=== PATIENT | female | born 1950 | race Caucasian/White ===

== ENCOUNTER 2021-07-24 08:24 | Inpatient (IN) | payer OTHER ==
[2021-07-24 09:07] LABS: Hemoglobin 13.1 g/dL (12.0-15.5); INR-International Normal Ratio 1.6; MDiff Complete? YES; Mean Corpuscular HGB CONC 33.2 g/dL (32.0-36.0); Mean Corpuscular Hemoglobin 34.3 pg (27.0-33.0); Mean Corpuscular Volume 103.1 fl (81.6-98.3); Mean Platelet Volume 12.3 fl (7.4-10.4); PTT 38.5 sec (22.0-33.0); Platelet Count 106 10x3/uL (150-450); Prothrombin Time 17.2 sec (9.5-12.1); RBC Distribution Width 12.8 % (11.5-14.5); Red Blood Cell (RBC) Count 3.82 10x6/uL (3.90-5.03); White Blood Cell (WBC) Count 11.6 10x3/uL (3.5-10.5)
[2021-07-24 09:16] LABS: Acetaminophen Less than 10.0 mcg/mL (10.0-30.0); Alcohol Less than 10 mg/dL (Less than 10); Salicylate Less than 8.0 mg/dL (15.0-30.0)
[2021-07-24 09:18] LABS: ALT (SGPT) 202 U/L (8-55); AST (SGOT) 652 U/L (5-34); Albumin 3.4 g/dL (3.4-4.8); Alkaline Phosphatase 43 U/L (40-110); BUN (Urea Nitrogen) 61 mg/dL (9.8-20.1); Bilirubin, Total 0.8 mg/dL (0.2-1.2); Calc. Creatinine Clearance 0 mL/min (70-130); Calcium 7.6 mg/dL (7.8-10.44); Chloride 102 mmol/L (98-107); Globulin 2.2 g/dL (2.4-3.5); Glucose 162 mg/dL (80-115); Lipase 21 U/L (8-78); Protein, Total 5.6 g/dL (5.8-8.1); Sodium 134 mmol/L (136-145)
[2021-07-24 09:25] LABS: Band 40 % (5-11); Lymphocytes 2 % (21-51); Monocytes 7 % (0-10); Neutrophil 49 % (42-75); Reactive Lymphocytes 1 % (0-10)
[2021-07-24 09:28] LABS: Large Platelets SLIGHT; Macrocytosis SLIGHT = 6-15 cells (100X) (0-5/hpf); Platelet Morphology Comment Appears Decreased
[2021-07-24 09:29] LABS: Dohle Bodies SLIGHT
[2021-07-24 09:30] LABS: Carbon Dioxide Less than 8 mmol/L (23-31); Potassium 6.7 mmol/L (3.5-5.1)
[2021-07-24] MEDS ORDERED: Albuterol Sulfate 2.5 mg/3 ml Neb ONE ×3 (09:54→15:23)
[2021-07-24 10:29] LABS: Actual Bicarbonate (HCO3a) 7.7 mEq/L (22-28); Base Excess (BEa) -20.2 mEq/L (-2.0 to +3.0); Calcium, Ionized (arterial) 0.94 mmol/L (1.12-1.30); Carboxyhemoglobin (COHb) 0.5 gm% (0.0-3.0); Hemoglobin (Hb) 12.4 g/dL (12.0-16.0); O2 Tension (PaO2), arterial 137.1 mmHg (> 80.0); Potassium - ABG Lab 6.7 mmol/L (3.70-5.30); Puncture Site RBA; pH, Arterial 7.11 (7.35-7.45)
[2021-07-24 10:32] LABS: CK (CPK) Greater than 40000 U/L (29-168)
[2021-07-24 10:34] LABS: CKMB 633.6 ng/mL (0-6.6)
[2021-07-24] MEDS ORDERED: Calcium Chloride 1 GM/10 ML Abboject SYRINGE ONE (10:44)
[2021-07-24] MEDS ORDERED: Dextrose 50% Abboject 50 ML SYRINGE ONE (10:44)
[2021-07-24] MEDS ORDERED: Cefepime 2 GM VIAL ONE (10:45)
[2021-07-24] MEDS ORDERED: Insulin Regular 300 UNITS/3 ML VIAL ONE (10:45)
[2021-07-24] MEDS ORDERED: Sodium Bicarb 50 MEQ/50 ML VIAL ONE ×4 (10:46→10:47)
[2021-07-24 10:52] LABS: Bilirubin 1+ (Negative); Blood, Urine 250 (Negative); Clarity Cloudy (Clear); Glucose, Urine (Dipstick) Normal (Negative); Ketone, Urine Negative (Negative); Leukocyte 500 (Negative); Nitrite Negative (Negative); Protein, Urine (Dipstick) 100 mg/dl (Neg-Trace); Specific Gravity, Urine 1.025 (1.002-1.036)
[2021-07-24 11:03] LABS: Amphetamine Not Detected (NotDetected); Barbiturates Screen Not Detected (NotDetected); Benzodiazepine Screen Not Detected (NotDetected); Cocaine Metabolite Screen Not Detected (NotDetected); Methadone Not Detected (NotDetected); Methamphetamine Not Detected (NotDetected); Opiate Screen Detected (NotDetected); Oxycodone Screen Not Detected (NotDetected); Phencyclidine (PCP) Not Detected (NotDetected); THC/Cannabinoid Screen Not Detected (NotDetected); Tricyclic Screen Not Detected (NotDetected)
[2021-07-24 11:17] LABS: WBC/HPF 21-50 HPF (0-3)
[2021-07-24 11:18] LABS: Bacteria/HPF 2+ HPF (None Seen); Squamous Epithelial 0-3 HPF (0-3); Transitional Epithelial 0-3 HPF (None Seen)
[2021-07-24] MEDS ORDERED: Ondansetron PF 4 MG/2 ML Vial IVP PRN (12:07)
[2021-07-24] MEDS ORDERED: Dextrose 5% in Water 1,000 ML IV PRN (12:07)
[2021-07-24] MEDS ORDERED: HumaLOG 300 UNITS/3 ML VIAL SC PRN ×4 (12:07→12:56)
[2021-07-24] MEDS ORDERED: Ondansetron ODT 4 MG TAB PO PRN (12:07)
[2021-07-24] MEDS ORDERED: Acetaminophen 650 MG Suppository PR PRN (12:07)
[2021-07-24] MEDS ORDERED: Acetaminophen 325 MG TAB PO PRN (12:07)
[2021-07-24 12:24] LABS: Anion Gap 29 mmol/L (10-20); BUN (Urea Nitrogen) 60 mg/dL (9.8-20.1); Calc. Creatinine Clearance 0 mL/min (70-130); Calcium 7.9 mg/dL (7.8-10.44); Chloride 102 mmol/L (98-107); Glucose 178 mg/dL (80-115); Sodium 132 mmol/L (136-145)
[2021-07-24] MEDS ORDERED: Lactated Ringer's 1,000 ML IV SCH (12:30)
[2021-07-24 12:34] LABS: Carbon Dioxide 8 mmol/L (23-31); Potassium 7.1 mmol/L (3.5-5.1)
[2021-07-24 12:36] LABS: Lactic Acid 12.3 mmol/L (0.5-2.2)
[2021-07-24] MEDS ORDERED: Aspirin Chewable 81 MG TAB ONE (12:43)
[2021-07-24] MEDS ORDERED: Sodium Chloride 0.9% 1,000 ML IV SCH (13:00)
[2021-07-24 13:02] LABS: Glucose 164 mg/dL (80-115); Troponin I 0.065 ng/mL (< 0.028)
[2021-07-24 13:10] LABS: Magnesium 2.1 mg/dL (1.6-2.6)
[2021-07-24 13:24] LABS: Phosphorus 11.9 mg/dL (2.3-4.7)
[2021-07-24 13:49] VITALS: BMI 38.9
[2021-07-24] MEDS ORDERED: Calcium Gluconate 4.6 MEQ in Sodium Chloride 0.9% 100 ML IVPB ONE (13:55)
[2021-07-24] MEDS ORDERED: Dextrose 50% Abboject 50 ML SYRINGE SLOW IVP PRN (13:57)
[2021-07-24 13:59] LABS: SARS-CoV-2 NAA Rapid Test Not Detected (NotDetected)
[2021-07-24] MEDS ORDERED: Insulin Regular 300 UNITS/3 ML VIAL IVP SCH (14:00)
[2021-07-24] MEDS ORDERED: Sodium Bicarb 50 MEQ/50 ML VIAL IVP SCH (14:15)
[2021-07-24] MEDS ORDERED: Albuterol Sulfate 2.5 mg/3 ml Neb NEB SCH (15:15)
[2021-07-24 15:37] LABS: Strep pneumo Urine Ag POSITIVE (NEGATIVE)
[2021-07-24 15:42] LABS: Actual Bicarbonate (HCO3a) 11.5 mEq/L (22-28); Base Excess (BEa) -15.9 mEq/L (-2.0 to +3.0); CO2 Tension 32.5 mmHg (35.0-45.0); Calcium, Ionized (arterial) 0.94 mmol/L (1.12-1.30); Hemoglobin (Hb) 13.3 g/dL (12.0-16.0); O2 Tension (PaO2), arterial 107.5 mmHg (> 80.0); Potassium - ABG Lab 7.3 mmol/L (3.70-5.30); Puncture Site LRA; pH, Arterial 7.17 (7.35-7.45)
[2021-07-24 15:45] LABS: ALV-art Gradient 564.875 mmHg (0-20)
[2021-07-24] MEDS: Heparin 5,000 UNITS/ML VIAL SC SCH ×2 (15:52→22:45)
[2021-07-24] MEDS ORDERED: Sodium Bicarbonate 75 MEQ, Admixture Fee 1 EACH in Dextrose 5% in Water 500 ML IV SCH (16:00)
[2021-07-24] MEDS ORDERED: Norepinephrine 8 MG/0.9% NS 250 ML ONE (16:12)
[2021-07-24] MEDS ORDERED: Albumin 25% 25 GM/100 ML BOT IVPB PRN (16:13)
[2021-07-24] MEDS ORDERED: Fentanyl 100 MCG/2 ML VIAL ONE (16:27)
[2021-07-24] MEDS ORDERED: PROPOFOL 200 MG/20 ML VIAL ONE (16:30)
[2021-07-24] MEDS ORDERED: Rocuronium Bromide 10 MG/ML (10ML VIAL) ONE (16:30)
[2021-07-24] MEDS ORDERED: Propofol 1,000 MG/100 ML VIAL IV ONE (16:40)
[2021-07-24] MEDS ORDERED: Hydrocortisone Sod Succ/PF 100 mg/2 ml Vial ONE (16:44)
[2021-07-24 16:58] LABS: ALT (SGPT) 539 U/L (8-55); AST (SGOT) 1333 U/L (5-34); Albumin 2.8 g/dL (3.4-4.8); Alkaline Phosphatase 51 U/L (40-110); Anion Gap 25 mmol/L (10-20); BUN (Urea Nitrogen) 64 mg/dL (9.8-20.1); Bilirubin, Total 0.6 mg/dL (0.2-1.2); Calc. Creatinine Clearance 21 mL/min (70-130); Calcium 7.2 mg/dL (7.8-10.44); Carbon Dioxide 12 mmol/L (23-31); Chloride 104 mmol/L (98-107); Globulin 2.3 g/dL (2.4-3.5); Glucose 226 mg/dL (80-115); Protein, Total 5.1 g/dL (5.8-8.1); Sodium 134 mmol/L (136-145)
[2021-07-24] MEDS ORDERED: Rocuronium Bromide 10 MG/ML (10ML VIAL) IVP SCH (17:00)
[2021-07-24] MEDS: Sodium Bicarbonate 75 MEQ, Admixture Fee 1 EACH in Dextrose 5% in Water 500 ML IV SCH ×2 (17:00→18:15)
[2021-07-24] MEDS ORDERED: Fentanyl 100 MCG/2 ML VIAL SLOW IVP SCH (17:00)
[2021-07-24] MEDS ORDERED: Hydrocortisone Sod Succ/PF 100 mg/2 ml Vial IVP SCH (17:00)
[2021-07-24] MEDS ORDERED: Lactated Ringer's 500 ML IV SCH (17:00)
[2021-07-24 17:03] LABS: Potassium 7.1 mmol/L (3.5-5.1)
[2021-07-24 17:11] LABS: Troponin I 0.074 ng/mL (< 0.028)
[2021-07-24] MEDS ORDERED: Ventilator Sedation Protocol 1 EACH FS SCH (17:15)
[2021-07-24] MEDS: Sodium Chloride 0.9% 1,000 ML IV SCH (17:21)
[2021-07-24 17:26] LABS: Hep B Surf Ag Non-Reactive S/CO (NonReactive)
[2021-07-24] MEDS: Lactated Ringer's 1,000 ML IV SCH (17:29)
[2021-07-24] MEDS ORDERED: DISCONTINUE PREVIOUS NARCOTIC PAIN MEDICATIONS AND BENZODIAZEPINES FS SCH (17:30)
[2021-07-24] MEDS ORDERED: Lorazepam 2 MG/ML VIAL SLOW IVP PRN (17:30)
[2021-07-24] MEDS ORDERED: Fentanyl BOLUS 250 ML IVPB PRN (17:30)
[2021-07-24] MEDS ORDERED: Propofol BOLUS 1,000 MG/100 ML VIAL IV PRN (17:30)
[2021-07-24] MEDS ORDERED: Morphine 2 MG/ML VIAL SLOW IVP PRN (17:30)
[2021-07-24 17:56] LABS: HBSAg Index 0.19 S/CO (0-0.99)
[2021-07-24] MEDS: Propofol 1,000 MG/100 ML VIAL IV PRN (17:58)
[2021-07-24] MEDS ORDERED: Famotidine/PF 20 mg/2ml Vial SLOW IVP SCH (21:00)
[2021-07-24] MEDS ORDERED: Cefepime 1 GM in Sodium Chloride 0.9% 100 ML IVPB SCH (22:30)
[2021-07-24] MEDS ORDERED: Vancomycin 1 GM in Premix Bag 1 BAG IVPB PRN (22:50)
[2021-07-24 22:55] LABS: Glucose 135 mg/dL (80-115)
[2021-07-24 23:29] LABS: HBSAB Concentration Less than 8.00 mIU/mL; Hep B Core Total Ab Non-Reactive (NonReactive); Hep B Core Total Index 0.08 S/CO (0-0.79); Hep B Surf AB Non-Reactive (NonReactive); Hep C IgG Ab Non-Reactive (NonReactive); Hep C Index 0.05 S/CO (0-0.79)
[2021-07-24] MEDS ORDERED: Sodium Chloride 0.9% 500 ML IV SCH (23:30)
[2021-07-24] MEDS ORDERED: Albumin 25% 25 GM/100 ML BOT IVPB SCH (23:30)
[2021-07-24] MEDS: Hydrocortisone Sod Succ/PF 100 mg/2 ml Vial IVP SCH (23:50)
[2021-07-24] MEDS ORDERED: Vancomycin HCl 1 GM in Sodium Chloride 0.9% 250 ML 250 ML IVPB SCH (23:59)
[2021-07-25 00:44] LABS: Actual Bicarbonate (HCO3v) 20 mEq/L (22-28); Base Excess -3.2 mEq/L (-2.0 to +3.0); Calcium, Ionized (venous) 0.72 mmol/L (1.16-1.32); Chloride (VBG) 98 mmol/L (98-106); Critical Notified Whom: ZOVAN; Hemoglobin (Hb) 12.4 g/dL (11.7-16.1); Potassium (VBG) 5.22 mmol/L (3.70-5.30); Puncture Site Other Site; Sodium 132.3 mmol/L (133-146); pH (venous) 7.42 (7.32-7.43)
[2021-07-25 00:53] LABS: Anion Gap 24 mmol/L (10-20); BUN (Urea Nitrogen) 39 mg/dL (9.8-20.1); Calc. Creatinine Clearance 32 mL/min (70-130); Calcium 6.7 mg/dL (7.8-10.44); Carbon Dioxide 18 mmol/L (23-31); Chloride 99 mmol/L (98-107); Glucose 114 mg/dL (80-115); Potassium 5.4 mmol/L (3.5-5.1); Sodium 136 mmol/L (136-145)
[2021-07-25] MEDS ORDERED: Calcium Gluc 4.6 MEQ/10 ML (100 MG/ML) SLOW IVP SCH ×3 (00:59→23:36)
[2021-07-25 01:09] LABS: Lactic Acid 8.1 mmol/L (0.5-2.2)
[2021-07-25] MEDS: Pantoprazole 40 MG VIAL IVP SCH ×3 (01:22→23:49)
[2021-07-25 01:38] LABS: Hemoglobin 12.2 g/dL (12.0-15.5); Manual Diff?? YES; Mean Corpuscular HGB CONC 35.1 g/dL (32.0-36.0); Mean Corpuscular Hemoglobin 34.2 pg (27.0-33.0); Mean Corpuscular Volume 97.5 fl (81.6-98.3); Mean Platelet Volume 13.2 fl (7.4-10.4); Platelet Count 41 10x3/uL (150-450); RBC Distribution Width 12.8 % (11.5-14.5); Red Blood Cell (RBC) Count 3.57 10x6/uL (3.90-5.03); White Blood Cell (WBC) Count 3.9 10x3/uL (3.5-10.5)
[2021-07-25 01:39] LABS: MDiff Complete? YES
[2021-07-25] MEDS: Lactated Ringer's 1,000 ML IV SCH ×4 (02:14→18:46)
[2021-07-25 02:37] LABS: Band 38 % (5-11); Eosinophils 1 % (0-10); Lymphocytes 1 % (21-51); Metamyelocyte 8 % (0-0); Monocytes 7 % (0-10); Myelocyte 1 % (0-0); Neutrophil 40 % (42-75)
[2021-07-25 02:39] LABS: Dohle Bodies SLIGHT; Platelet Morphology Comment Appears Decreased; Toxic Granulation SLIGHT; Vacuoles SLIGHT
[2021-07-25] MEDS: Propofol 1,000 MG/100 ML VIAL IV PRN ×3 (04:20→21:42)
[2021-07-25] MEDS: fentaNYL Citrate-0.9 % NaCl/PF 100 ML IVPB SCH ×2 (04:20→19:29)
[2021-07-25] MEDS: Sodium Chloride 0.9% 1,000 ML IV SCH (04:29)
[2021-07-25 04:48] LABS: Hemoglobin 12.3 g/dL (12.0-15.5); MDiff Complete? YES; Manual Diff?? YES; Mean Corpuscular HGB CONC 34.6 g/dL (32.0-36.0); Mean Corpuscular Hemoglobin 34.1 pg (27.0-33.0); Mean Corpuscular Volume 98.3 fl (81.6-98.3); Mean Platelet Volume 13.2 fl (7.4-10.4); Platelet Count 40 10x3/uL (150-450); RBC Distribution Width 12.9 % (11.5-14.5); Red Blood Cell (RBC) Count 3.61 10x6/uL (3.90-5.03); White Blood Cell (WBC) Count 5.1 10x3/uL (3.5-10.5)
[2021-07-25] MEDS: Phenylephrine 40 MG/NS 250 ML 40 MG in Premix Bag 1 BAG IVPB SCH ×3 (04:57→19:29)
[2021-07-25] MEDS ORDERED: Phenylephrine 40 MG/NS 250 ML 10 MG in Premix Bag 1 BAG IVPB SCH (05:00)
[2021-07-25 05:15] LABS: Iron 24 ug/dL (50-170); Iron Binding Capacity, Total 116 mcg/dL (265-497)
[2021-07-25 05:17] LABS: Band 60 % (5-11); Dohle Bodies SLIGHT; Metamyelocyte 9 % (0-0); Monocytes 3 % (0-10); Neutrophil 23 % (42-75); Platelet Morphology Comment Appears Decreased; Toxic Granulation SLIGHT; Vacuoles SLIGHT
[2021-07-25 05:21] LABS: Iron 23 ug/dL (50-170)
[2021-07-25 05:28] LABS: ALT (SGPT) 800 U/L (8-55); AST (SGOT) 2049 U/L (5-34); Albumin 3.3 g/dL (3.4-4.8); Alkaline Phosphatase 66 U/L (40-110); Anion Gap 27 mmol/L (10-20); BUN (Urea Nitrogen) 43 mg/dL (9.8-20.1); CK (CPK) Greater than 40000 U/L (29-168); Calc. Creatinine Clearance 29 mL/min (70-130); Calcium 6.7 mg/dL (7.8-10.44); Carbon Dioxide 17 mmol/L (23-31); Chloride 100 mmol/L (98-107); Globulin 1.9 g/dL (2.4-3.5); Glucose 89 mg/dL (80-115); Iron Binding Capacity, Total 120 mcg/dL (265-497); Magnesium 1.7 mg/dL (1.6-2.6); Potassium 5.7 mmol/L (3.5-5.1); Protein, Total 5.2 g/dL (5.8-8.1); Sodium 138 mmol/L (136-145)
[2021-07-25] MEDS: Hydrocortisone Sod Succ/PF 100 mg/2 ml Vial IVP SCH ×4 (05:59→23:47)
[2021-07-25] MEDS ORDERED: Norepinephrine 16 MG, Admixture Fee 1 EACH in Dextrose 5% in Water 250 ML IVPB SCH (06:00)
[2021-07-25 07:03] LABS: Actual Bicarbonate (HCO3a) 26.3 mEq/L (22-28); Base Excess (BEa) -1.3 mEq/L (-2.0 to +3.0); CO2 Tension 57.8 mmHg (35.0-45.0); Calcium, Ionized (arterial) 0.99 mmol/L (1.12-1.30); Carboxyhemoglobin (COHb) 1.4 gm% (0.0-3.0); Hemoglobin (Hb) 12.1 g/dL (12.0-16.0); O2 Tension (PaO2), arterial 35.8 mmHg (> 80.0); Puncture Site Left Heel; pH, Arterial 7.28 (7.35-7.45)
[2021-07-25 07:37] LABS: Actual Bicarbonate (HCO3a) 16.5 mEq/L (22-28); Base Excess (BEa) -8.2 mEq/L (-2.0 to +3.0); CO2 Tension 31.5 mmHg (35.0-45.0); Calcium, Ionized (arterial) 0.78 mmol/L (1.12-1.30); Carboxyhemoglobin (COHb) 0.7 gm% (0.0-3.0); Hemoglobin (Hb) 12.6 g/dL (12.0-16.0); O2 Tension (PaO2), arterial 143.5 mmHg (> 80.0); Potassium - ABG Lab 6.1 mmol/L (3.70-5.30); Puncture Site RRA; pH, Arterial 7.34 (7.35-7.45)
[2021-07-25 07:42] LABS: ALV-art Gradient 209.275 mmHg (0-20)
[2021-07-25] MEDS ORDERED: Polyethylene Glycol 3350 17 GM Packet PER TUBE PRN (08:27)
[2021-07-25] MEDS ORDERED: Senokot S 8.6-50 MG TAB PO PRN (08:27)
[2021-07-25] MEDS ORDERED: Magnesium 2 GM/50 ML(in water) 2 GM in Premix Bag 1 BAG IVPB SCH (08:45)
[2021-07-25] MEDS ORDERED: Iron Sucrose Complex 100 MG in Sodium Chloride 0.9% 100 ML IVPB SCH (09:00)
[2021-07-25] MEDS ORDERED: Clopidogrel Bisulfate 75 MG TAB PO SCH (09:00)
[2021-07-25] MEDS ORDERED: Gabapentin 300 MG CAP PO SCH (09:00)
[2021-07-25] MEDS ORDERED: Aspirin Chewable 81 MG TAB PO SCH (09:00)
[2021-07-25] MEDS ORDERED: Folic Acid 1 MG TAB PO SCH (09:00)
[2021-07-25] MEDS ORDERED: Famotidine 20 MG TAB PO SCH (09:00)
[2021-07-25] MEDS ORDERED: Acetaminophen 650 MG Suppository PR PRN (09:05)
[2021-07-25] MEDS ORDERED: Acetaminophen 325 MG TAB PO PRN (09:06)
[2021-07-25] MEDS ORDERED: Levothyroxine Sodium 100 MCG TAB PO SCH (09:15)
[2021-07-25] MEDS ORDERED: Iron, Sodium Ferric Gluconate 125 MG in Sodium Chloride 0.9% 100 ML IVPB SCH (09:15)
[2021-07-25 09:32] LABS: Hemoglobin 12.9 g/dL (12.0-15.5); Mean Corpuscular HGB CONC 33.6 g/dL (32.0-36.0); Mean Corpuscular Volume 101.3 fl (81.6-98.3); Mean Platelet Volume 13.2 fl (7.4-10.4); Platelet Count 47 10x3/uL (150-450); RBC Distribution Width 13.1 % (11.5-14.5); Red Blood Cell (RBC) Count 3.79 10x6/uL (3.90-5.03); White Blood Cell (WBC) Count 10.4 10x3/uL (3.5-10.5)
[2021-07-25 10:02] LABS: Lactic Acid 13.1 mmol/L (0.5-2.2)
[2021-07-25 10:03] LABS: ALT (SGPT) 972 U/L (8-55); AST (SGOT) 2273 U/L (5-34); Albumin 3.1 g/dL (3.4-4.8); Alkaline Phosphatase 68 U/L (40-110); Anion Gap 30 mmol/L (10-20); BUN (Urea Nitrogen) 46 mg/dL (9.8-20.1); Bilirubin, Total 2.2 mg/dL (0.2-1.2); Calc. Creatinine Clearance 26 mL/min (70-130); Calcium 5.9 mg/dL (7.8-10.44); Carbon Dioxide 12 mmol/L (23-31); Chloride 100 mmol/L (98-107); Globulin 1.6 g/dL (2.4-3.5); Glucose 39 mg/dL (80-115); Potassium 6.5 mmol/L (3.5-5.1); Protein, Total 4.7 g/dL (5.8-8.1); Sodium 135 mmol/L (136-145)
[2021-07-25 10:04] LABS: Glucose 40 mg/dL (80-115)
[2021-07-25] MEDS: Dextrose 50% Abboject 50 ML SYRINGE SLOW IVP PRN ×3 (10:04→16:41)
[2021-07-25 10:39] LABS: CK (CPK) Greater than 40000 U/L (29-168)
[2021-07-25 10:56] LABS: MDiff Complete? YES
[2021-07-25 11:01] LABS: Glucose 83 mg/dL (80-115)
[2021-07-25 11:01] LABS: Eosinophils 1 % (0-10); Lymphocytes 2 % (21-51)
[2021-07-25 11:02] LABS: Band 28 % (5-11); Monocytes 6 % (0-10); Neutrophil 63 % (42-75)
[2021-07-25 11:03] LABS: Platelet Morphology Comment Appears Decreased
[2021-07-25 11:04] LABS: Dohle Bodies SLIGHT
[2021-07-25 13:32] LABS: Vancomycin, Random 16.2 ug/mL (See Comment)
[2021-07-25] MEDS ORDERED: Dextrose 10% in Water 1,000 ML IV SCH (14:00)
[2021-07-25] MEDS ORDERED: Digoxin 0.5 MG/2 ML AMP SLOW IVP SCH (15:00)
[2021-07-25 18:01] LABS: Glucose 83 mg/dL (80-115)
[2021-07-25 20:13] LABS: Glucose 77 mg/dL (80-115)
[2021-07-25] MEDS ORDERED: Cefepime 0.5 GM, Admixture Fee 1 EACH in Sodium Chloride 0.9% 50 ML IVPB SCH (23:00)
[2021-07-26] MEDS: Dextrose 50% Abboject 50 ML SYRINGE SLOW IVP PRN (00:02)
[2021-07-26 00:17] VITALS: BP 103/48; TEMP 97.5
[2021-07-26 01:33] LABS: Vancomycin, Random 11.3 ug/mL (See Comment)
[2021-07-26 01:47] LABS: BUN (Urea Nitrogen) 32 mg/dL (9.8-20.1); Calc. Creatinine Clearance 29 mL/min (70-130); Carbon Dioxide Less than 8 mmol/L (23-31); Chloride 96 mmol/L (98-107); Glucose 118 mg/dL (80-115); Magnesium 2.6 mg/dL (1.6-2.6); Potassium 7.2 mmol/L (3.5-5.1); Sodium 133 mmol/L (136-145)
[2021-07-26] MEDS ORDERED: Dextrose 50% Abboject 50 ML SYRINGE SLOW IVP PRN (01:56)
[2021-07-26] MEDS ORDERED: Calcium Gluc 4.6 MEQ/10 ML (100 MG/ML) SLOW IVP SCH (02:00)
[2021-07-26] MEDS ORDERED: Insulin Regular 300 UNITS/3 ML VIAL IVP SCH (02:00)
[2021-07-26] MEDS ORDERED: Sodium Bicarb 50 MEQ/50 ML VIAL IVP SCH (02:00)
[2021-07-26] MEDS ORDERED: Albuterol Sulfate 2.5 mg/3 ml Neb NEB SCH (02:00)
[2021-07-26] MEDS ORDERED: Sodium Bicarbonate 75 MEQ in Dextrose 5% in Water 500 ML IV SCH (02:30)
[2021-07-26] MEDS ORDERED: Vasopressin 20 UNIT, Admixture Fee 1 EACH in Sodium Chloride 0.9% 50 ML IV SCH (02:30)
[2021-07-26] MEDS ORDERED: Levothyroxine Sodium 100 MCG TAB PO SCH (06:00)
== END 2021-07-26 09:58 | disposition expired | DRG 871 ==
LOC: CSHERS 08:24 → CSHIMCU 13:32
PROVIDERS: ADMIT Family Medicine; ATTEND Family Medicine
PROC: 5A1945Z Respiratory Ventilation, 24-96 Consecutive Hours (ICD-10-PCS; principal; 2021-07-24)
PROC: 0BH18EZ Insertion of Endotracheal Airway into Trachea, Via Natural or Artificial Opening Endoscopic (ICD-10-PCS; 2021-07-24)
PROC: 06HY33Z Insertion of Infusion Device into Lower Vein, Percutaneous Approach (ICD-10-PCS; 2021-07-24)
PROC: 3E03329 Introduction of Other Anti-infective into Peripheral Vein, Percutaneous Approach (ICD-10-PCS; 2021-07-24)
PROC: 3E033XZ Introduction of Vasopressor into Peripheral Vein, Percutaneous Approach (ICD-10-PCS; 2021-07-24)
PROC: 5A1D70Z Performance of Urinary Filtration, Intermittent, Less than 6 Hours Per Day (ICD-10-PCS; 2021-07-24)
PROC: 5A2204Z Restoration of Cardiac Rhythm, Single (ICD-10-PCS; 2021-07-26)
PROC: 5A12012 Performance of Cardiac Output, Single, Manual (ICD-10-PCS; 2021-07-26)
DX: A41.89 Other specified sepsis (principal); J96.01 Acute respiratory failure with hypoxia; J96.02 Acute respiratory failure with hypercapnia; R65.21 Severe sepsis with septic shock; J18.9 Pneumonia, unspecified organism; K72.00 Acute and subacute hepatic failure without coma; N18.6 End stage renal disease; I21.A1 Myocardial infarction type 2; G92.8 Other toxic encephalopathy; E87.2 Acidosis; N17.9 Acute kidney failure, unspecified; I47.2 Ventricular tachycardia; I12.0 Hypertensive chronic kidney disease with stage 5 chronic kidney disease or end stage renal disease; T79.6XXA Traumatic ischemia of muscle, initial encounter; R57.1 Hypovolemic shock; D75.89 Other specified diseases of blood and blood-forming organs; D69.6 Thrombocytopenia, unspecified; I25.10 Atherosclerotic heart disease of native coronary artery without angina pectoris; N31.9 Neuromuscular dysfunction of bladder, unspecified; F32.A Depression, unspecified; F11.90 Opioid use, unspecified, uncomplicated; M25.512 Pain in left shoulder; E78.5 Hyperlipidemia, unspecified; E11.65 Type 2 diabetes mellitus with hyperglycemia; G47.33 Obstructive sleep apnea (adult) (pediatric); E66.9 Obesity, unspecified; G89.29 Other chronic pain; E88.09 Other disorders of plasma-protein metabolism, not elsewhere classified; D63.1 Anemia in chronic kidney disease; I48.91 Unspecified atrial fibrillation; I49.01 Ventricular fibrillation; Z20.822 Contact with and (suspected) exposure to COVID-19; E11.22 Type 2 diabetes mellitus with diabetic chronic kidney disease; E89.0 Postprocedural hypothyroidism; T40.2X5A Adverse effect of other opioids, initial encounter; E87.5 Hyperkalemia; Z87.448 Personal history of other diseases of urinary system; Z98.890 Other specified postprocedural states; Z80.0 Family history of malignant neoplasm of digestive organs; Z80.8 Family history of malignant neoplasm of other organs or systems; Z87.891 Personal history of nicotine dependence; Z88.1 Allergy status to other antibiotic agents; Z86.79 Personal history of other diseases of the circulatory system; Z87.442 Personal history of urinary calculi; Y92.003 Bedroom of unspecified non-institutional (private) residence as the place of occurrence of the external cause; Z95.1 Presence of aortocoronary bypass graft; Z79.4 Long term (current) use of insulin; Z79.84 Long term (current) use of oral hypoglycemic drugs; Z79.82 Long term (current) use of aspirin; Z79.899 Other long term (current) drug therapy; Z99.2 Dependence on renal dialysis; Z88.2 Allergy status to sulfonamides; Z86.39 Personal history of other endocrine, nutritional and metabolic disease; Z68.39 Body mass index [BMI] 39.0-39.9, adult; I46.9 Cardiac arrest, cause unspecified; Z79.890 Hormone replacement therapy; W01.0XXA Fall on same level from slipping, tripping and stumbling without subsequent striking against object, initial encounter; E11.649 Type 2 diabetes mellitus with hypoglycemia without coma; K52.89 Other specified noninfective gastroenteritis and colitis
CPT/HCPCS: 36415; 36416; 36600; 51702; 70450; 71045; 72125; 76705; 76770; 80053; 80202; 80306; 80307; 81003; 81015; 82274; 82533; 82550; 82553; 82607; 82746; 82805; 83540; 83550; 83605; 83690; 83735; 84100; 84145; 84443; 84484; 85025; 85060; 85610; 85730; 86704; 86706; 86803; 87040; 87045; 87046; 87070; 87077; 87081; 87086; 87149; 87186; 87205; 87324; 87340; 87427; 87449; 90935; 93005; 93010; 93306; 94002; 94640; 94760; 96365; 96366; 96375; C9113; G0257; J0610; J0692; J1160; J1720; J1815; J2704; J2916; J3010; J3370; J3475; J3490; J7050; J7070; J7120; J7611; J7999; P9047; S0028; U0002